=== PATIENT | female | born 1950 | race African-American/Black ===

== ENCOUNTER 2018-02-03 18:05 | Emergency (ER) | payer MEDICARE, MEDICAID ==
[~2018-02-03] VITALS: Ht 167.6 cm; Wt 72.6 kg
[2018-02-03 18:05] VITALS: BP 146/61
[~2018-02-03 18:05] MED LIST: HYDROCHLOROTHIA25 MG PO; LOTREL 5-20 MG1 EACH PO; NORCO 5-325 TA1 EACH PO
[2018-02-03 18:35] VITALS: BP 108/72
[2018-02-03 18:51] LABS: HEMATOCRIT 27.1 % (37.0-47.0); HEMOGLOBIN 9.5 G/DL (12.0-16.0); MEAN CORPUSCULAR VOLUME 89 FL (80-99); PLATELET COUNT 154 K/UL (150-450); RED BLOOD COUNT 3.02 M/UL (4.20-5.40); WHITE BLOOD COUNT 8.8 K/UL (4.8-10.8)
[2018-02-03 18:52] LABS: BASOPHILS % (AUTO) 0.4 % (0.0-2.0); EOSINOPHILS % (AUTO) 0.1 % (0.0-3.0); LYMPHOCYTES % (AUTO) 7.6 % (20.0-45.0); MONOCYTES % (AUTO) 5.6 % (1.0-10.0); NEUTROPHILS % (AUTO) 86.3 % (45.0-75.0)
[2018-02-03 19:06] LABS: ANION GAP 13 mmol/L (5-15); BLOOD UREA NITROGEN 41 mg/dL (7-18); CALCIUM 7.8 MG/DL (8.5-10.1); CARBON DIOXIDE 22 MMOL/L (21-32); CHLORIDE 115 MMOL/L (98-107); CREATININE 1.9 MG/DL (0.55-1.30); POTASSIUM 3.2 MMOL/L (3.5-5.1); SODIUM 150 MMOL/L (136-145)
[2018-02-03] MEDS ORDERED: Bacitracin Oint UD TOPIC ONE (19:15)
[2018-02-03 19:19] LABS: ALANINE AMINOTRANSFERASE 24 U/L (12-78); ALBUMIN 3.3 G/DL (3.4-5.0); ALBUMIN/GLOBULIN RATIO 0.8 (1.0-2.7); ALKALINE PHOSPHATASE 73 U/L (46-116); ASPARTATE AMINO TRANSFERASE 30 U/L (15-37); BILIRUBIN,TOTAL 0.3 MG/DL (0.2-1.0); CKMB 0.7 NG/ML (0.0-3.6); CREATINE KINASE 247 U/L (26-308)
[2018-02-03] MEDS ORDERED: NKM (20:01)
--- NOTE | 2018-02-03 20:04 | Emergency Room Report ---
History of Present Illness General Chief Complaint: Dizziness Source: Patient, EMS Present Illness HPI 68-year-old female presents to ED for evaluation. Patient states she felt dizzy when walking today and fell landing on her right knee. Denies hitting her head or LOC. Patient states she feels okay now. Denies any chest pain or shortness of breath. Denies any dizziness or headache. Complaining of right knee pain, throbbing, 8 out of 10, nonradiating. Unable to bear weight. Denies alcohol or drug use. No other aggravating relieving factors. Denies any other associated symptoms Allergies: Coded Allergies: No Known Allergies (Verified , 09/10/11) Patient History Past Medical History: HTN, CVA/TIA, other - SDH Past Surgical History: none Pertinent Family History: none Social History: Denies: smoking, alcohol use, drug use Now: No Immunizations: UTD Reviewed Nursing Documentation: PMH: Agreed; PSxH: Agreed Nursing Documentation-PMH Past Medical History: No History, Except For Hx Cardiac Problems: No - BRAIN SURGERY 1984 Hx Hypertension: Yes Hx Neurological Problems: Yes - SUBDURAL HEMATOMA, COMA IN 1983 Hx Cerebrovascular Accident: Yes - 1983 Hx Seizures: Yes Review of Systems All Other Systems: negative except mentioned in HPI Physical Exam Vital Signs Date Time Temp Pulse Resp B/P (MAP) Pulse Ox O2 Delivery O2 Flow Rate FiO2 02/03/18 17:52 100.1 110 20 104/62 98 Room Air 100.0 Sp02 EP Interpretation: reviewed, normal General Appearance: no apparent distress, alert, GCS 15, non-toxic Head: normocephalic, atraumatic Eyes: bilateral eye normal inspection, bilateral eye PERRL ENT: hearing grossly normal, normal pharynx, no angioedema, normal voice Neck: full range of motion, supple/symm/no masses Respiratory: chest non-tender, lungs clear, normal breath sounds, speaking full sentences Cardiovascular #1: regular rate, rhythm, no edema Cardiovascular #2: 2+ carotid (R), 2+ carotid (L), 2+ radial (R), 2+ radial (L) , 2+ dorsalis pedis (R), 2+ dorsalis pedis (L) Gastrointestinal: normal bowel sounds, non tender, soft, non-distended, no guarding, no rebound Rectal: deferred Genitourinary: normal inspection, no CVA tenderness Musculoskeletal: back normal, gait/station normal, decreased range of motion, swelling - R knee Neurologic: alert, oriented x3, responsive, motor strength/tone normal, sensory intact, speech normal Psychiatric: judgement/insight normal, memory normal, mood/affect normal, no suicidal/homicidal ideation Reflexes: 3+ bicep (R), 3+ bicep (L), 3+ tricep (R), 3+ tricep (L), 3+ knee (R) , 3+ knee (L) Skin: other - large abrasion to R knee Lymphatic: no adenopathy Procedures Splinting Splinting : Consent: Verbal Pre-Made Type: knee immobilizer Pre-Proc Neuro Vasc Exam: normal Post-Proc Neuro Vasc Exam: normal Patient Tolerated: Well Complications: None Medical Decision Making Diagnostic Impression: Primary Impression: Near syncope Additional Impressions: Dehydration Elevated troponin Patella fracture Qualified Codes: S82.001A - Unspecified fracture of right patella, initial encounter for closed fracture ER Course Hospital Course 68-year-old female presents ED c/o R Knee pain/swelling s/p near syncope Differential diagnoses include: fracture, dislocation, contusion Clinical course Patient placed on stretcher. After initial history and physical I ordered labs, IVFs, CT head, EKG, CXR, pain medication and x-rays of right knee. Labs reviewed- no leukocytosis noted, BUN/Cr elevated, trop 0.118, Chest x-ray- cardiomegaly EKG - NSR, no acute ischemic changes interpreted by me Knee [id number] patellar fracture CT head unremarkable Patient declined aspirin. Placed in a knee immobilizer. On reassessment pain improved. Denies any chest pain. Because of insurance patient will be transferred i. I feel this is a highly complex case requiring extensive working including EKG/Rhythm strip, Xray/CT/US, Blood/urine lab work, repeat exams while in ED, and administration of strong opiates/narcotics for pain control, admission to hospital or close patient follow up. Diagnosis - near syncope, dehydration, elevated troponin, patella fx Transferred in serious condition Labs Test 02/03/18 18:30 02/03/18 19:00 White Blood Count 8.8 K/UL (4.8-10.8) Red Blood Count 3.02 M/UL (4.20-5.40) Hemoglobin 9.5 G/DL (12.0-16.0) Hematocrit 27.1 % (37.0-47.0) Mean Corpuscular Volume 89 FL (80-99) Mean Corpuscular Hemoglobin 31.3 PG (27.0-31.0) Mean Corpuscular Hemoglobin Concent 35.0 G/DL (32.0-36.0) Red Cell Distribution Width 13.0 % (11.6-14.8) Platelet Count 154 K/UL (150-450) Mean Platelet Volume 7.7 FL (6.5-10.1) Neutrophils (%) (Auto) 86.3 % (45.0-75.0) Lymphocytes (%) (Auto) 7.6 % (20.0-45.0) Monocytes (%) (Auto) 5.6 % (1.0-10.0) Eosinophils (%) (Auto) 0.1 % (0.0-3.0) Basophils (%) (Auto) 0.4 % (0.0-2.0) Sodium Level 150 MMOL/L (136-145) Potassium Level 3.2 MMOL/L (3.5-5.1) Chloride Level 115 MMOL/L (98-107) Carbon Dioxide Level 22 MMOL/L (21-32) Anion Gap 13 mmol/L (5-15) Blood Urea Nitrogen 41 mg/dL (7-18) Creatinine 1.9 MG/DL (0.55-1.30) Estimat Glomerular Filtration Rate 31.9 mL/min (>60) Glucose Level 102 MG/DL (74-106) Calcium Level 7.8 MG/DL (8.5-10.1) Total Bilirubin 0.3 MG/DL (0.2-1.0) Aspartate Amino Transf (AST/SGOT) 30 U/L (15-37) Alanine Aminotransferase (ALT/SGPT) 24 U/L (12-78) Alkaline Phosphatase 73 U/L (46-116) Total Creatine Kinase 247 U/L (26-308) Creatine Kinase MB 0.7 NG/ML (0.0-3.6) Creatine Kinase MB Relative Index 0.2 Troponin I 0.118 ng/mL (0.000-0.056) Pro-B-Type Natriuretic Peptide 178 pg/mL (0-125) Total Protein 7.7 G/DL (6.4-8.2) Albumin 3.3 G/DL (3.4-5.0) Globulin 4.4 g/dL Albumin/Globulin Ratio 0.8 (1.0-2.7) Serum Alcohol < 3 mg/dL Urine Opiates Screen Negative (NEGATIVE) Urine Barbiturates Screen Negative (NEGATIVE) Phencyclidine (PCP) Screen Negative (NEGATIVE) Urine Amphetamines Screen Negative (NEGATIVE) Urine Benzodiazepines Screen Negative (NEGATIVE) Urine Cocaine Screen Negative (NEGATIVE) Urine Marijuana (THC) Screen Negative (NEGATIVE) EKG Diagnostic Results Rate: normal Rhythm: NSR ST Segments: no acute changes ASA given to the pt in ED: No - patient refused Rhythm Strip Diag. Results EP Interpretation: yes Rhythm: NSR, no PVC's, no ectopy Chest X-Ray Diagnostic Results Chest X-Ray Diagnostic Results : Chest X-Ray Ordered: Yes # of Views/Limited/Complete: 1 View Indication: Other - dizziness EP Interpretation: Yes Interpretation: no pneumothorax, other - cardiomegaly Impression: Other - cardiomegaly Electronically Signed by: Electronically signed by Alexis Hernandez MD Other X-Ray Diagnostic Results Other X-Ray Diagnostic Results : X-Ray ordered: R knee # of Views/Limited Vs Complete: 3 View Indication: Pain EP Interpretation: Yes Interpretation: no dislocation, other - displaced patella fx Impression: Other - patella fx Electronically Signed by: Electronically signed by Alexis Hernandez MD CT/MRI/US Diagnostic Results CT/MRI/US Diagnostic Results : Imaging Test Ordered: CT head Impression no acute process Last Vital Signs Date Time Temp Pulse Resp B/P (MAP) Pulse Ox O2 Delivery O2 Flow Rate FiO2 02/03/18 17:52 100.1 110 20 104/62 98 Room Air 100.0 Status: improved Disposition: XFER SHT-TRM HOSP Condition: Serious Referrals: [facility],REFERRING (PCP) Alexis Hernandez MD Feb 03, 2018 20:04
[2018-02-03] MEDS ORDERED: Morphine Sulfate 4mg/ml Inj IVP ONE ×2 (20:15→22:15)
[2018-02-03 20:35] VITALS: BP 104/59
[2018-02-03 21:40] VITALS: BP 123/70
[2018-02-03 22:50] VITALS: BP 123/70
[2018-02-03 22:55] VITALS: BP 123/70
--- NOTE | 2018-02-04 09:16 | Diagnostic Imaging Report ---
Indication: Syncope Technique: Continuous helical CT scanning of the head was performed utilizing automated exposure control without intravenous contrast material. Axial and coronal reconstructions were obtained. Comparison: 01/27/2013 and 09/10/2011; MRI of the brain 09/10/2011. CT dose: Total DLP 1474.61 mGycm; CTDI vol 70.38 mGy Findings: There is no acute intracranial hemorrhage, mass effect or cortical edema. The ventricles, cisterns and sulci are prominent consistent with atrophy. Periventricular hypoattenuation is seen, a nonspecific finding. Chronic bony changes status post left craniotomy/craniectomy. These findings are unchanged compared to the prior exam. Mastoid air cells and paranasal sinuses are clear. IMPRESSION: No evidence of acute intracranial hemorrhage, mass effect or cortical edema. MRI may be obtained for more sensitive evaluation as clinically indicated. Atrophy and nonspecific periventricular hypoattenuation suggestive of chronic ischemic microvascular changes. Unchanged appearance status post left convexity craniotomy/craniectomy. This corresponds with the statrad preliminary report. The CT scanner at [facility] is accredited by the [employer] and the scans are performed using protocols designed to limit radiation exposure to as low as reasonably achievable to attain images of sufficient resolution adequate for diagnostic evaluation.
--- NOTE | 2018-02-04 11:15 | Diagnostic Imaging Report ---
Indication: Pain status post injury Technique: XRAY Knee 3v R Comparison: None Findings: There is an acute transverse fracture through the mid pole of the patella with approximately 4.3 cm distraction of the fracture fragments. There is overlying soft tissue swelling and a small joint effusion. No additional fracture identified. There is degenerative change of the knee with some medial femorotibial compartment joint space narrowing and small marginal osteophytes. Atherosclerotic vascular calcifications noted. No radiopaque foreign body seen. IMPRESSION: Acute patellar fracture as detailed above. This corresponds with the preliminary interpretation of the treating ER clinician, as documented in the electronic medical record.
--- NOTE | 2018-02-04 11:16 | Diagnostic Imaging Report ---
Indication: Syncope Technique: XRAY Chest 1v Comparison: None Findings: Exam as low lung volumes, which artifactually exaggerate heart size and vascular markings. Heart size within upper limits for normal. There is no focal airspace consolidation, pleural effusion or pneumothorax. No acute osseous abnormality seen. IMPRESSION: Limited exam with low lung volumes. Question mild pulmonary vascular congestion, possibly exaggerated due to low lung volumes. Correlate clinically. Repeat exam with improved inspiratory effort can be obtained as clinically indicated. No definite focal consolidation.
--- NOTE | 2018-02-05 18:14 | Cardiology Report ---
APPROVED REPORT EKG Measurement Heart [id number] Normal sinus rhythm Normal ECG
== END 2018-02-03 22:55 | disposition short-term general hospital (02) ==
LOC: EDBD 18:05 → EMR 18:10 → EDBEDREQ 19:33 → EMR 22:55
DX: R55 Syncope and collapse (principal); E86.0 Dehydration; R79.89 Other specified abnormal findings of blood chemistry; S82.031A Displaced transverse fracture of right patella, initial encounter for closed fracture; W19.XXXA Unspecified fall, initial encounter; Y92.9 Unspecified place or not applicable; I10 Essential (primary) hypertension; Z86.73 Personal history of transient ischemic attack (TIA), and cerebral infarction without residual deficits
CPT/HCPCS: 36415; 70450; 71045; 73562; 80053; 80307; 82550; 82553; 83880; 84484; 85025; 93005; 96361; 96374; 96375; 99285; G0480; J2270; 80329

== ENCOUNTER 2018-02-23 09:21 | Emergency (ER) | payer MEDICARE, MEDICAID ==
[~2018-02-23] VITALS: Ht 167.6 cm; Wt 63.5 kg
[~2018-02-23 09:21] MED LIST changes: +NKM
[2018-02-23 09:50] VITALS: BP 102/62
[2018-02-23] MEDS ORDERED: Neosporin Oint Ud Pkt TOPIC ONE (10:00)
[2018-02-23 10:38] VITALS: BP 102/62
--- NOTE | 2018-02-23 14:37 | Emergency Room Report ---
History of Present Illness General Chief Complaint: Wound Recheck/Suture Removal Source: Patient Present Illness HPI Patient presents to the emergency department today for a wound check. Patient received recent surgery on her right knee performed last month. Patient states that her surgeon is on vacation so she came here for a wound check. She states that there was significant swelling after the surgery but this swelling has improved. She denies any calf pain or calf tenderness. She denies any fever or chest pain or shortness of breath. Symptoms noted to be moderate.No other modifying factors. No other associated signs and symptoms. No other complaints were noted. Allergies: Coded Allergies: No Known Allergies (Verified , 09/10/11) Patient History Past Medical History: HTN PSxH Narrative subdural hematoma,right knee surgery Social History: Denies: smoking, alcohol use, drug use Reviewed Nursing Documentation: PMH: Agreed; PSxH: Agreed Nursing Documentation-PMH Hx Cardiac Problems: No - BRAIN SURGERY 1984 Hx Hypertension: Yes Hx Neurological Problems: Yes - SUBDURAL HEMATOMA, COMA IN 1983 Hx Cerebrovascular Accident: Yes - 1983 Hx Seizures: Yes Review of Systems All Other Systems: negative except mentioned in HPI Physical Exam Vital Signs Date Time Temp Pulse Resp B/P (MAP) Pulse Ox O2 Delivery O2 Flow Rate FiO2 02/23/18 09:31 98.4 92 17 102/62 98 Room Air 98.4 Sp02 EP Interpretation: reviewed, normal General Appearance: normal inspection, well appearing, no apparent distress, alert Head: atraumatic Eyes: bilateral eye normal inspection ENT: normal ENT inspection, hearing grossly normal, normal voice Neck: normal inspection, full range of motion, supple, no bony tend Respiratory: normal inspection, lungs clear, normal breath sounds, no respiratory distress, no retraction, no wheezing Cardiovascular #1: regular rate, rhythm, no edema Gastrointestinal: normal inspection, normal bowel sounds, non tender, soft, no guarding, no hernia Genitourinary: no CVA tenderness Musculoskeletal: back normal, normal range of motion, swelling - right knee swelling. No abscess noted. Wound appears to be healing. Arvin intact. Neurologic: normal inspection, alert, responsive, speech normal Psychiatric: normal inspection, judgement/insight normal, mood/affect normal Skin: normal inspection, normal color, no rash Medical Decision Making Diagnostic Impression: Primary Impression: Encounter for wound re-check ER Course Patient presents to the emergency department today for a wound check. Patient' s wound appears to be healing well. No evidence of any infection at this time. Recommended good wound care. Dressing changes. Patient's dressing was changed here. Recommend outpatient follow-up with patient's physical therapist and orthopedist.Patient is advised to follow up with primary doctor in 2-3 days and return the emergency room for any worsening symptoms and as needed. Last Vital Signs Date Time Temp Pulse Resp B/P (MAP) Pulse Ox O2 Delivery O2 Flow Rate FiO2 02/23/18 10:38 98.4 17 102/62 98 Room Air 98.4 02/23/18 09:31 92 Status: improved Disposition: HOME, SELF-CARE Condition: Stable Referrals: [facility],REFERRING (PCP) Patient Instructions: Wound Check DANIEL MERINO M.D. Feb 23, 2018 14:37
== END 2018-02-23 10:38 | disposition home or self-care (01) ==
LOC: EMR 10:03
DX: Z48.01 Encounter for change or removal of surgical wound dressing (principal); I10 Essential (primary) hypertension; Z86.69 Personal history of other diseases of the nervous system and sense organs; Z98.890 Other specified postprocedural states
CPT/HCPCS: 99281; 99282